=== PATIENT | female | born 1985 | race American Indian/Alaskan Native ===

== ENCOUNTER 2020-12-15 10:37 | Outpatient (CLI) | payer OTHER | END 2020-12-15 12:50 | disposition home or self-care (01) | LOC: TRG 10:37 → APU 10:41 → TRG 12:50 | PROVIDERS: ATTEND Obstetrics & Gynecology | DX: O36.8130 Decreased fetal movements, third trimester, not applicable or unspecified (principal); Z3A.29 29 weeks gestation of pregnancy | CPT/HCPCS: 59025 ==